=== PATIENT | male | born 1960 | race Caucasian/White ===

== ENCOUNTER 2017-11-14 15:06 | Emergency (ER) | payer SELFPAY ==
[2017-11-14 15:54] LABS: HEMOGLOBIN 17.2 g/dL (13.5-17.0); MEAN CORPUSCULAR HEMOGLOBIN 29.7 pg (27.0-33.4); MEAN CORPUSCULAR HGB CONC 34.5 g/dL (32.0-36.0); MEAN CORPUSCULAR VOLUME 86 fl (80-97); PLATELET COUNT 201 10^3/uL (150-450); RED CELL DISTRIBUTION WIDTH 13.6 % (11.5-14.0)
[2017-11-14 16:01] LABS: INTERNATIONAL RATION (INR) 0.98; PROTHROMBIN TIME 13.7 SEC (11.4-15.4)
[2017-11-14] MEDS ORDERED: ONDANSETRON HCL INJ/PF 4 MG/2 ML SDV IV ONE (16:07)
[2017-11-14 16:10] LABS: A TYPE INFLUENZA AG NEGATIVE (NEGATIVE)
[2017-11-14 16:11] LABS: B INFLUENZA AG NEGATIVE (NEGATIVE)
--- NOTE | 2017-11-14 16:13 | ER Document Report ---
ED General - General Chief Complaint: Nausea/Vomiting/Diarrhea Stated Complaint: NAUSEA,VOMITING Time Seen by Provider: 11/14/17 15:51 Mode of Arrival: Ambulatory Information source: Patient TRAVEL OUTSIDE OF THE [place] IN LAST 30 DAYS: No - HPI Patient complains to provider of: Nausea vomiting and diarrhea Onset: Other - 0200 am Onset/Duration: Sudden Quality of pain: Achy - Body aches all over Associated symptoms: Body/muscle aches, Diarrhea, Nausea, Vomiting. denies: Chest pain, Nonproductive cough, Productive cough, Fever, Headache, Hurts to breath, Leg swelling, Shortness of breath Exacerbated by: Movement Relieved by: Denies Similar symptoms previously: No Recently seen / treated by doctor: No Notes: Patient also states his friend had the same thing yesterday. - Related Data Allergies/Adverse Reactions: No Known Allergies Allergy (Verified 11/14/17 15:31) Past Medical History - General Information source: Patient - Social History Smoking Status: Former Smoker Frequency of alcohol use: None Drug Abuse: None Lives with: Alone Family History: None Patient has suicidal ideation: No Patient has homicidal ideation: No - Past Medical History Cardiac Medical History: Denies: Hx Coronary Artery Disease - high chol , Hx DVT, Hx Heart Attack, Hx Hypertension Pulmonary Medical History: Denies: Hx Asthma, Hx Bronchitis, Hx COPD, Hx Pneumonia Neurological Medical History: Denies: Hx Cerebrovascular Accident, Hx Seizures Renal/ Medical History: Reports: None. Denies: Hx Peritoneal Dialysis Malignancy Medical History: Reports None GI Medical History: Reports: None Musculoskeltal Medical History: Reports Hx Arthritis Past Surgical History: Reports: Hx Orthopedic Surgery - left leg internal fixation - Immunizations Hx Diphtheria, Pertussis, Tetanus Vaccination: Yes Review of Systems - Review of Systems Constitutional: See HPI EENT: See HPI Cardiovascular: No symptoms reported Respiratory: No symptoms reported Gastrointestinal: See HPI Genitourinary: No symptoms reported Male Genitourinary: No symptoms reported Musculoskeletal: See HPI Skin: No symptoms reported Hematologic/Lymphatic: No symptoms reported Neurological/Psychological: No symptoms reported Physical Exam - Vital signs Vitals: Temp Resp Pulse Ox 98.7 F 18 96 11/14/17 15:19 11/14/17 15:19 11/14/17 15:19 - Notes Notes: PHYSICAL EXAMINATION: GENERAL: Well-appearing, well-nourished and in mild acute distress. HEAD: Atraumatic, normocephalic. EYES: Pupils equal round and reactive to light, extraocular movements intact, sclera anicteric, conjunctiva are normal. ENT: Nares patent, oropharynx clear without exudates. Dry mucous membranes. TMs wnl. NECK: Normal range of motion, supple without lymphadenopathy. LUNGS: Breath sounds clear to auscultation bilaterally and equal. No wheezes rales or rhonchi. HEART: Regular rate and rhythm without murmurs ABDOMEN: Soft, nontender, nondistended abdomen. No guarding, no rebound. No masses appreciated. Musculoskeletal: Normal range of motion, no pitting or edema. No cyanosis. NEUROLOGICAL: Cranial nerves grossly intact. Normal speech, normal gait. Normal sensory, motor exams PSYCH: Normal mood, normal affect. SKIN: Warm, Dry, normal turgor, no rashes or lesions noted. Course - Re-evaluation Re-evalutation: Labs- All tests 24 hr 11/14/17 11/14/17 11/14/17 15:22 15:23 15:23 WBC 18.0 H RBC 5.80 H Hgb 17.2 H Hct 50.0 MCV 86 MCH 29.7 MCHC 34.5 RDW 13.6 Plt Count 201 Total Counted 100 Seg Neutrophils % Not Reportable Seg Neuts % (Manual) 93 H Lymphocytes % Not Reportable Lymphocytes % (Manual) 2 L Monocytes % Not Reportable Monocytes % (Manual) 5 Eosinophils % Not Reportable Eosinophils % (Manual) 0 Basophils % Not Reportable Basophils % (Manual) 0 Absolute Neutrophils Not Reportable Abs Neuts (Manual) 16.7 H Absolute Lymphocytes Not Reportable Abs Lymphs (Manual) 0.4 L Absolute Monocytes Not Reportable Abs Monocytes (Manual) 0.9 Absolute Eosinophils Not Reportable Absolute Eos (Manual) 0.0 Absolute Basophils Not Reportable Abs Basophils (Manual) 0.0 Toxic Granulation SLIGHT Platelet Comment ADEQUATE PT 13.7 INR 0.98 VBG pH VBG pCO2 VBG HCO3 VBG Base Excess Sodium Potassium Chloride Carbon Dioxide Anion Gap BUN Creatinine Est GFR ( Amer) Est GFR (Non-Af Amer) Glucose POC Glucose Lactic Acid Calcium Magnesium Total Bilirubin Direct Bilirubin Neonat Total Bilirubin Neonat Direct Bilirubin Neonat Indirect Bili AST ALT Alkaline Phosphatase Total Protein Albumin Urine Color Urine Appearance Urine pH Ur Specific Price Urine Protein Urine Glucose (UA) Urine Ketones Urine Blood Urine Nitrite Urine Bilirubin Urine Urobilinogen Ur Leukocyte Esterase Urine WBC (Auto) Urine RBC (Auto) Squamous Epi Cells Auto Urine Mucus (Auto) Urine Ascorbic Acid Influenza A (Rapid) NEGATIVE Influenza B (Rapid) NEGATIVE 11/14/17 11/14/17 11/14/17 15:23 16:35 16:40 WBC RBC Hgb Hct MCV MCH MCHC RDW Plt Count Total Counted Seg Neutrophils % Seg Neuts % (Manual) Lymphocytes % Lymphocytes % (Manual) Monocytes % Monocytes % (Manual) Eosinophils % Eosinophils % (Manual) Basophils % Basophils % (Manual) Absolute Neutrophils Abs Neuts (Manual) Absolute Lymphocytes Abs Lymphs (Manual) Absolute Monocytes Abs Monocytes (Manual) Absolute Eosinophils Absolute Eos (Manual) Absolute Basophils Abs Basophils (Manual) Toxic Granulation Platelet Comment PT INR VBG pH VBG pCO2 VBG HCO3 VBG Base Excess Sodium 141.1 Potassium 4.0 Chloride 108 H Carbon Dioxide 18 L Anion Gap 15 BUN 18 Creatinine 0.89 Est GFR ( Amer) > 60 Est GFR (Non-Af Amer) > 60 Glucose 181 H POC Glucose 156 H Lactic Acid 2.7 H Calcium 9.6 Magnesium 1.8 Total Bilirubin 1.8 H Direct Bilirubin 0.2 Neonat Total Bilirubin Not Reportable Neonat Direct Bilirubin Not Reportable Neonat Indirect Bili Not Reportable AST 28 ALT 24 Alkaline Phosphatase 80 Total Protein 7.3 Albumin 4.7 Urine Color Urine Appearance Urine pH Ur Specific Price Urine Protein Urine Glucose (UA) Urine Ketones Urine Blood Urine Nitrite Urine Bilirubin Urine Urobilinogen Ur Leukocyte Esterase Urine WBC (Auto) Urine RBC (Auto) Squamous Epi Cells Auto Urine Mucus (Auto) Urine Ascorbic Acid Influenza A (Rapid) Influenza B (Rapid) 11/14/17 11/14/17 16:40 16:40 WBC RBC Hgb Hct MCV MCH MCHC RDW Plt Count Total Counted Seg Neutrophils % Seg Neuts % (Manual) Lymphocytes % Lymphocytes % (Manual) Monocytes % Monocytes % (Manual) Eosinophils % Eosinophils % (Manual) Basophils % Basophils % (Manual) Absolute Neutrophils Abs Neuts (Manual) Absolute Lymphocytes Abs Lymphs (Manual) Absolute Monocytes Abs Monocytes (Manual) Absolute Eosinophils Absolute Eos (Manual) Absolute Basophils Abs Basophils (Manual) Toxic Granulation Platelet Comment PT INR VBG pH 7.46 H VBG pCO2 31.7 L VBG HCO3 22.1 VBG Base Excess -0.5 Sodium Potassium Chloride Carbon Dioxide Anion Gap BUN Creatinine Est GFR ( Amer) Est GFR (Non-Af Amer) Glucose POC Glucose Lactic Acid Calcium Magnesium Total Bilirubin Direct Bilirubin Neonat Total Bilirubin Neonat Direct Bilirubin Neonat Indirect Bili AST ALT Alkaline Phosphatase Total Protein Albumin Urine Color YELLOW Urine Appearance SLIGHTLY-CLOUDY Urine pH 5.0 Ur Specific Price 1.032 Urine Protein 30 H Urine Glucose (UA) NEGATIVE Urine Ketones NEGATIVE Urine Blood NEGATIVE Urine Nitrite NEGATIVE Urine Bilirubin NEGATIVE Urine Urobilinogen NEGATIVE Ur Leukocyte Esterase NEGATIVE Urine WBC (Auto) 2 Urine RBC (Auto) 2 Squamous Epi Cells Auto <1 Urine Mucus (Auto) MANY Urine Ascorbic Acid NEGATIVE Influenza A (Rapid) Influenza B (Rapid) 11/14/17 18:57 11/14/17 18:57 11/14/17 18:00 Tolerated nitesh crackers and soda without difficulty. His lactic was slightly elevated at 2.7. He is getting another liter of normal normal saline and the lactic will be repeated. 11/14/17 18:58 11/14/17 19:43 resting comfortably in the room playing on the bed. He is using his phone. He is tolerating vinay willian and crackers. He does state that he has had a few bowel movements since he has been here. I did tell the patient if he gets worse instead of better to return to the emergency department. He is to have a bland diet for the next few days. I did tell him I will send him home with Zofran for vomiting. Patient states his girlfriend is also vomiting. I stated perhaps they have the same infection. 11/14/17 19:51 Repeat lactic 2.7 - Vital Signs Vital signs: Temp Pulse Resp BP Pulse Ox 97.8 F 15 112/89 H 96 11/14/17 19:05 11/14/17 15:23 11/14/17 15:23 11/14/17 15:23 - Laboratory Result Diagrams: 11/14/17 15:23 11/14/17 15:23 Laboratory results interpreted by me: 11/14/17 11/14/17 11/14/17 15:23 15:23 16:35 WBC 18.0 H RBC 5.80 H Hgb 17.2 H Seg Neuts % (Manual) 93 H Lymphocytes % (Manual) 2 L Abs Neuts (Manual) 16.7 H Abs Lymphs (Manual) 0.4 L VBG pH VBG pCO2 Chloride 108 H Carbon Dioxide 18 L Glucose 181 H POC Glucose 156 H Lactic Acid Total Bilirubin 1.8 H Urine Protein 11/14/17 11/14/17 11/14/17 16:40 16:40 16:40 WBC RBC Hgb Seg Neuts % (Manual) Lymphocytes % (Manual) Abs Neuts (Manual) Abs Lymphs (Manual) VBG pH 7.46 H VBG pCO2 31.7 L Chloride Carbon Dioxide Glucose POC Glucose Lactic Acid 2.7 H Total Bilirubin Urine Protein 30 H 11/14/17 18:42 WBC RBC Hgb Seg Neuts % (Manual) Lymphocytes % (Manual) Abs Neuts (Manual) Abs Lymphs (Manual) VBG pH VBG pCO2 Chloride Carbon Dioxide Glucose POC Glucose Lactic Acid 2.7 H Total Bilirubin Urine Protein - EKG Interpretation by Ma EKG shows normal: Sinus rhythm Rate: Tachycardia - 125 [employer]/QRS: Left axis deviation Discharge - Discharge Clinical Impression: Vomiting and diarrhea Condition: Stable Disposition: HOME, SELF-CARE Instructions: Vomiting ([facility]), Antinausea Medication ([facility]) Additional Instructions: Follow up with your physician tomorrow for further care or return to the ED IMMEDIATELY if symptoms worsen or new concerns occur. If you cannot afford to follow up with your primary care physician a list of low cost clinics have been provided at the end of your discharge papers as well. Prescriptions: Ondansetron [Zofran Odt 4 mg Tablet] 1 - 2 tab PO Q4H PRN #15 tab.rapdis PRN Reason: For Nausea/Vomiting Referrals: MEGHANN DEVI MD [Primary Care Provider] - Follow up as needed
[2017-11-14 16:15] LABS: ALANINE AMINOTRANSFERASE 24 U/L (21-72); ALBUMIN 4.7 g/dL (3.5-5.0); ALKALINE PHOSPHATASE 80 U/L (38-126); ANION GAP 15 (5-19); ASPARTATE AMINO TRANSFERASE 28 U/L (17-59); BILIRUBIN,DIRECT 0.2 mg/dL (0.0-0.4); BILIRUBIN,TOTAL 1.8 mg/dL (0.2-1.3); BLOOD UREA NITROGEN 18 mg/dL (7-20); CALCIUM 9.6 mg/dL (8.4-10.2); CARBON DIOXIDE 18 mmol/L (22-30); CHLORIDE 108 mmol/L (98-107); GLUCOSE 181 mg/dL (75-110); SODIUM 141.1 mmol/L (137-145); TOTAL PROTEIN 7.3 g/dL (6.3-8.2)
[2017-11-14 16:17] LABS: ABSOLUTE LYMPHOCYTES# (MANUAL) 0.4 10^3/uL (0.5-4.7); ABSOLUTE MONOCYTES # (MANUAL) 0.9 10^3/uL (0.1-1.4); ABSOLUTE NEUTROPHILS# (MANUAL) 16.7 10^3/uL (1.7-8.2); BASOPHILS % (MANUAL) 0 % (0-2); EOSINOPHILS % (MANUAL) 0 % (0-6); LYMPHOCYTES % (MANUAL) 2 % (13-45); MONOCYTES % (MANUAL) 5 % (3-13); PLATELET COMMENT ADEQUATE; SEGMENTED NEUTROPHILS % (MAN) 93 % (42-78); TOTAL CELLS COUNTED 100; TOXIC GRANULATION SLIGHT
[2017-11-14] MEDS: NORMAL SALINE 1000 ML 1,000 ML IV PRN ×2 (16:32→16:34)
[2017-11-14 16:54] LABS: MAGNESIUM 1.8 mg/dL (1.6-2.3)
[2017-11-14 17:10] LABS: VENOUS BLOOD BASE EXCESS -0.5 mmol/L; VENOUS BLOOD HCO3 22.1 mmol/L (20-32); VENOUS BLOOD PCO2 31.7 mmHg (35-63); VENOUS BLOOD PH 7.46 (7.30-7.42)
[2017-11-14 17:23] LABS: APPEARANCE,URINE SLIGHTLY-CLOUDY; BILIRUBIN,URINE NEGATIVE (NEGATIVE); COLOR,URINE YELLOW; GLUCOSE, URINE NEGATIVE (NEGATIVE); KETONES,URINE NEGATIVE (NEGATIVE); LEUKOCYTE ESTERASE,URINE NEGATIVE (NEGATIVE); NITRITE,URINE NEGATIVE (NEGATIVE); PROTEIN,URINE 30 mg/dL (NEGATIVE); URINE SPECIFIC GRAVITY 1.032; UROBILINOGEN,URINE NEGATIVE mg/dL (<2.0)
[2017-11-14] MEDS ORDERED: NORMAL SALINE 1000 ML 1,000 ML IV ONE (17:59)
[2017-11-14] MEDS ORDERED: DIPHENOXYLATE HCL/ATROP SULF 2.5-0.025 MG TABLET PO ONE (19:50)
[2017-11-14 20:16] VITALS: BP 142/72
--- NOTE | 2017-11-14 22:47 | EKG REPORT ---
SEVERITY:- OTHERWISE NORMAL ECG - SINUS TACHYCARDIA BORDERLINE LEFT AXIS DEVIATION : Confirmed by: Dona Jackson 14-Nov-2017 22:46:32
== END 2017-11-14 20:36 | disposition home or self-care (01) ==
LOC: ER 15:06
DX: R11.2 Nausea with vomiting, unspecified (principal); R19.7 Diarrhea, unspecified; M79.1 Myalgia; R00.0 Tachycardia, unspecified; R74.0 Nonspecific elevation of levels of transaminase and lactic acid dehydrogenase [LDH]; Z87.891 Personal history of nicotine dependence
CPT/HCPCS: 93005; 99284; 96361; 96374; 36415; 87040; 87086; 82962; 83735; 85025; 85610; 80053; 81001; 82803; 83605; 87804; 93010; J3490; J2405; J7030

== ENCOUNTER 2018-05-27 02:43 | Emergency (ER) | payer OTHER ==
[2018-05-27] MEDS ORDERED: KETOROLAC TROMETHAMINE INJ/PF 30 MG/1 ML SDV IM ONE (04:22)
--- NOTE | 2018-05-27 04:25 | ER Document Report ---
ED General - General Chief Complaint: Low Back Pain Stated Complaint: BACK PAIN Time Seen by Provider: 05/27/18 04:08 Notes: Patient is 57-year-old male who presents with complaint of back pain. Patient says that he lifted something heavy periods that he is picking up a heavy trash can W into the trazodone. He said he felt a pull in his back and has been in pain of his midthoracic spine ever since. No weakness or numbness into his extremities. No loss of bowel control. No urinary retention. No history of surgeries on his back. No recent fevers or infections. No other complaints at this time. TRAVEL OUTSIDE OF THE [place] IN LAST 30 DAYS: No - Related Data Allergies/Adverse Reactions: No Known Allergies Allergy (Verified 11/14/17 15:31) Past Medical History - Social History Smoking Status: Unknown if Ever Smoked Frequency of alcohol use: None Drug Abuse: None Family History: None - Past Medical History Cardiac Medical History: Denies: Hx Coronary Artery Disease - high chol , Hx DVT, Hx Heart Attack, Hx Hypertension Pulmonary Medical History: Denies: Hx Asthma, Hx Bronchitis, Hx COPD, Hx Pneumonia Neurological Medical History: Denies: Hx Cerebrovascular Accident, Hx Seizures Renal/ Medical History: Denies: Hx Peritoneal Dialysis Musculoskeletal Medical History: Reports Hx Arthritis Past Surgical History: Reports: Hx Orthopedic Surgery - left leg internal fixation - Immunizations Hx Diphtheria, Pertussis, Tetanus Vaccination: Yes Review of Systems - Review of Systems Notes: My Normal Review Basic REVIEW OF SYSTEMS: CONSTITUTIONAL : Denies fever, chills, or sweats. Denies recent illness.. CARDIOVASCULAR: Denies chest pain. RESPIRATORY: Denies cough, cold, or chest congestion. Denies shortness of breath, difficulty breathing, or wheezing. GASTROINTESTINAL: Denies abdominal pain. Denies nausea, vomiting, or diarrhea. GENITOURINARY: Denies difficulty urinating, painful urination, burning, frequency, or blood in urine. MUSCULOSKELETAL: Pain in back. SKIN: Denies rash or skin lesions. NEUROLOGICAL: Denies sensory or motor loss. ALL OTHER SYSTEMS REVIEWED AND NEGATIVE. Physical Exam - Vital signs Vitals: Temp Pulse Resp BP Pulse Ox 98.0 F 84 20 127/87 H 99 05/27/18 02:48 05/27/18 02:48 05/27/18 02:48 05/27/18 02:48 05/27/18 02:48 - Notes Notes: General Appearance: Well nourished, alert, cooperative, no acute distress, mild to moderate obvious discomfort. Vitals: reviewed, See vital signs table. Eyes: PERRL, EOMI, Conjuctiva clear Back: Patient has tenseness in the thoracic paraspinal musculature around level T5 T7. Midline of the spine is not very tender to palpation. Lumbar spine is nontender. No step-offs or deformities. Rash or bruising on back. Extremities: strength 5/5 in all extremities, good pulses in all extremities, no swelling or tenderness in the extremities, no edema. Skin: warm, dry, appropriate color, no rash. Patient is good strength with plantar dorsiflexion against resistance. Good distal sensation in both feet. Neuro: speech clear, oriented x 3, normal affect, responds appropriately to questions. Course - Re-evaluation Re-evalutation: 05/27/18 07:03 Patient will be discharged home. I did give him a dose of Toradol. I talked him at length about staying active but not lift anything heavy for the next few days. Encourage him take ibuprofen 400 mg every 6 hours for pain and inflammation. I will prescribe Skelaxin. Encourage him return to ER if he has worsening pain, weakness or numbness into his legs, or if he feels unwell. Dictation of this chart was performed using voice recognition software; therefore, there may be some unintended grammatical errors. - Vital Signs Vital signs: Temp Pulse Resp BP Pulse Ox 98.3 F 82 20 125/76 100 05/27/18 04:58 05/27/18 04:58 05/27/18 04:58 05/27/18 04:58 05/27/18 04:58 Discharge - Discharge Clinical Impression: Back pain Qualifiers: Back pain location: thoracic back pain Chronicity: acute Back pain laterality: bilateral Qualified Code(s): M54.6 - Pain in thoracic spine Condition: Good Disposition: HOME, SELF-CARE Additional Instructions: Please take Ibuprofen 400mg every 6h ours with food. Please take the muscle relaxer ( Skelaxin) as prescribed please follow up with a primary care physician in 1 week fi you are still having pain. Please return to the ER immediately if you are having weakness or numbness into your legs, difficulty urinating, or loss of control of bowel movements. Please do not do any heavy lifting for at least 1 week. Warm compresses alternating with cold compresses are helpful. Prescriptions: Metaxalone [Skelaxin 800 mg Tablet] 800 mg PO ASDIR PRN #20 tablet PRN Reason: Forms: Special Work Note, Return to Work Referrals: MEGHANN DEVI MD [PEDIATRICS] - Follow up in 1 week
[2018-05-27 05:01] VITALS: BP 125/76
== END 2018-05-27 05:00 | disposition home or self-care (01) ==
LOC: ER 02:43
DX: M54.6 Pain in thoracic spine (principal)
CPT/HCPCS: 99283; 96372; J1885

== ENCOUNTER 2018-06-02 10:31 | Emergency (ER) | payer OTHER ==
--- NOTE | 2018-06-02 11:07 | ER Document Report ---
ED General - General Chief Complaint: Back Pain Stated Complaint: BACK PAIN Time Seen by Provider: 06/02/18 10:55 Mode of Arrival: Ambulatory Information source: Patient Notes: 57-year-old male with reflux, hyperlipidemia presents with complaint of upper back pain that started 1 week prior to arrival. Patient was seen in the emergency department after lifting a heavy object which caused him to have immediate pain. Pain is located in the paraspinal musculature of the thoracic spine. Described as a stabbing intermittent pain that is worse in the morning but gradually gets better as he becomes more active. Patient was seen in the emergency department on the and given ibuprofen and Skelaxin which she states has not been helping. 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 He denies any upper or lower extremity weakness, urinary retention, fecal incontinence, fever , chills, history of IV drug use. TRAVEL OUTSIDE OF THE [place] IN LAST 30 DAYS: No - HPI Onset: Last week Onset/Duration: Gradual, Persistent Quality of pain: Stabbing Severity: Mild Associated symptoms: None Exacerbated by: Movement Relieved by: Denies Similar symptoms previously: Yes Recently seen / treated by doctor: Yes - 05/27/18 - Related Data Allergies/Adverse Reactions: No Known Allergies Allergy (Verified 06/02/18 10:32) Past Medical History - General Information source: Patient, [facility] Records - Social History Smoking Status: Current Every Day Smoker Cigarette use (# per day): Yes - 10 Smoking Education Provided: Yes - 4 minutes of smoking cessation provided Frequency of alcohol use: None Drug Abuse: None Lives with: Family Family History: None Patient has suicidal ideation: No Patient has homicidal ideation: No - Past Medical History Cardiac Medical History: Denies: Hx Coronary Artery Disease - high chol , Hx DVT, Hx Heart Attack, Hx Hypertension Pulmonary Medical History: Denies: Hx Asthma, Hx Bronchitis, Hx COPD, Hx Pneumonia Neurological Medical History: Denies: Hx Cerebrovascular Accident, Hx Seizures Renal/ Medical History: Denies: Hx Peritoneal Dialysis Musculoskeletal Medical History: Reports Hx Arthritis Past Surgical History: Reports: Hx Orthopedic Surgery - left leg internal fixation - Immunizations Hx Diphtheria, Pertussis, Tetanus Vaccination: Yes Review of Systems - Review of Systems Notes: REVIEW OF SYSTEMS: CONSTITUTIONAL : Denies fever, chills, or sweats. Denies recent illness. Denies weight loss, recent hospitalizations. EENT: Denies visual changes, eye pain. Denies nasal or sinus congestion or discharge. Denies sore throat, oral lesions, difficulty swallowing. CARDIOVASCULAR: Denies chest pain. Denies palpitations. Denies lower extremity edema. RESPIRATORY: Denies cough, cold, or chest congestion. Denies shortness of breath, wheezing. GASTROINTESTINAL: Denies abdominal pain or distention. Denies nausea, vomiting , or diarrhea. Denies blood in vomitus, stools, or per rectum. Denies black, tarry stools. Denies constipation. GENITOURINARY: Denies difficulty urinating, painful urination, frequency, blood in urine, or vaginal discharge. MUSCULOSKELETAL: Denies neck pain or stiffness. Denies joint pain or swelling. SKIN: Denies rash, lesions or sores. HEMATOLOGIC : Denies easy bruising or bleeding. LYMPHATIC: Denies swollen glands. NEUROLOGICAL: Denies confusion or altered mental status. Denies passing out or loss of consciousness. Denies dizziness or lightheadedness. Denies headache. Denies weakness or paralysis. Denies problems difficulty with ambulation, slurred speech. Denies sensory loss, numbness, or tingling. Denies seizures. PSYCHIATRIC: Denies anxiety or stress. Denies depression, suicidal ideation, or homicidal ideation. Denies visual or auditory hallucinations. Physical Exam - Vital signs Vitals: Temp Pulse Resp BP Pulse Ox 97.6 F 100 16 129/79 H 100 06/02/18 10:45 06/02/18 10:45 06/02/18 10:45 06/02/18 10:45 06/02/18 10:45 Interpretation: No: Febrile - Notes Notes: PHYSICAL EXAMINATION: GENERAL: Well-appearing, well-nourished and in no acute distress. HEAD: Atraumatic, normocephalic. EYES: Pupils equal round and reactive to light, extraocular movements intact, sclera anicteric, conjunctiva are normal. ENT: Nares patent, oropharynx clear without exudates. Moist mucous membranes. NECK: Normal range of motion, supple without lymphadenopathy LUNGS: Breath sounds clear to auscultation bilaterally and equal. No wheezes rales or rhonchi. HEART: Regular rate and rhythm without murmurs ABDOMEN: Soft, nontender, nondistended abdomen. No guarding, no rebound. No masses appreciated. Musculoskeletal: Normal range of motion, no pitting or edema. No cyanosis. Bilateral paraspinal tenderness of the thoracic spine around the level of T9, T10. No midline tenderness. NEUROLOGICAL: Cranial nerves grossly intact. Normal speech, normal gait. Normal sensory, motor exams PSYCH: Normal mood, normal affect. SKIN: Clean dry and intact no rash no lesions Course - Re-evaluation Re-evalutation: 06/02/18 11:05 57-year-old male presents for the second time with complaint of thoracic back pain that happened 1 week ago after lifting a heavy object. He was seen in the emergency department and discharged home on ibuprofen and Skelaxin which he states has not helped him. He states the pain is worse when he first wakes up but improves as he moves. 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 Patient was seen by myself upon arrival. Vital signs were reviewed. Patient is afebrile, normotensive and not hypoxic. Patient does not appear toxic or dehydrated. They are in no acute distress. Previous medical records and nursing notes reviewed. Exam is significant for some mild tenderness in the paraspinal musculature of the thoracic spine. No neuro deficits. Patient will be provided a short course of [place] and a work note will also be provided. Patient provided the opportunity to ask questions, and express concerns. Discharge instructions discussed. Patient is agreeable with discharge home. Return indications explained and discussed with the patient who displays understanding. Patient encouraged to return to the emergency department immediately with any concerns. - Vital Signs Vital signs: Temp Pulse Resp BP Pulse Ox 98.3 F 96 18 128/81 H 98 06/02/18 11:33 06/02/18 11:33 06/02/18 11:33 06/02/18 11:33 06/02/18 11:33 - Diagnostic Test Radiology reviewed: Image reviewed, Reports reviewed Discharge - Discharge Clinical Impression: Strain of thoracic region Qualifiers: Encounter type: initial encounter Qualified Code(s): S29.019A - Strain of muscle and tendon of unspecified wall of thorax, initial encounter Back pain Qualifiers: Back pain location: thoracic back pain Chronicity: chronic Back pain laterality : bilateral Qualified Code(s): M54.6 - Pain in thoracic spine Injury caused by lifting Qualifiers: Encounter type: subsequent encounter Qualified Code(s): X50.0XXD - Overexertion from strenuous movement or load, subsequent encounter Disposition: HOME, SELF-CARE Instructions: Muscle Strain ([facility]), Oral Narcotic Medication ([facility]) Additional Instructions: When returning to work try to avoid lifting anything heavier than 20 pounds. Continue to stay active. Continue to take Motrin 400 mg every [address] work or drive while taking [place]. Prescriptions: Cyclobenzaprine HCl [Flexeril 10 mg Tablet] 10 mg PO TIDP PRN #15 tab PRN Reason: Hydrocodone/Acetaminophen [[place] 5-325 mg Tablet] 1 tab PO Q6H #12 tablet Forms: Elevated Blood Pressure, Smoking Cessation Education, Return to Work
[2018-06-02 11:35] VITALS: BP 128/81
== END 2018-06-02 11:35 | disposition home or self-care (01) ==
LOC: ER 10:31
DX: S29.019A Strain of muscle and tendon of unspecified wall of thorax, initial encounter (principal); M54.6 Pain in thoracic spine; X50.0XXA Overexertion from strenuous movement or load, initial encounter; F17.200 Nicotine dependence, unspecified, uncomplicated
CPT/HCPCS: 99283; 99406

== ENCOUNTER 2018-06-11 03:13 | Emergency (ER) | payer OTHER ==
[2018-06-11] MEDS ORDERED: SILVER SULFADIAZINE 1% CREAM 400 GM TP PRN (04:44)
[2018-06-11] MEDS ORDERED: HYDROCODONE/ACETAMINOPHEN 5-325 MG (6 TAB/ER DISP) PO PRN (04:56)
--- NOTE | 2018-06-11 04:59 | ER Document Report ---
ED General - General Chief Complaint: Back Pain Stated Complaint: BACK PAIN Time Seen by Provider: 06/11/18 04:24 Notes: Patient is a very pleasant 57-year-old male who presents with complaint of back pain. Pain is in the lower back. I saw him just over a week ago after he pulled his back lifting something heavy. At that time I wrote him a note for light duty. The patient went back to work they still made him do the same thing and he says every time he lifts something heavy he feels a pull in his back and re-exacerbates his pain. He says that the Flexeril that was prescribed to him last time did help. He says he is almost out of this. He will also complains that he was using a heating pad and when he laid down the heating pad he fell asleep and now has a burn over across his lower back. No weakness or numbness into his legs. No loss of bowel control. No urinary retention. No fevers. No other complaints at this time. Patient says he does not have insurance and therefore is not her primary care physician and cannot follow-up for physical therapy. TRAVEL OUTSIDE OF THE [place] IN LAST 30 DAYS: No - Related Data Allergies/Adverse Reactions: No Known Allergies Allergy (Verified 06/02/18 10:32) Past Medical History - Social History Smoking Status: Never Smoker Frequency of alcohol use: None Drug Abuse: None Family History: None Patient has suicidal ideation: No Patient has homicidal ideation: No - Past Medical History Cardiac Medical History: Denies: Hx Coronary Artery Disease - high chol , Hx DVT, Hx Heart Attack, Hx Hypertension Pulmonary Medical History: Denies: Hx Asthma, Hx Bronchitis, Hx COPD, Hx Pneumonia Neurological Medical History: Denies: Hx Cerebrovascular Accident, Hx Seizures Renal/ Medical History: Denies: Hx Peritoneal Dialysis Musculoskeletal Medical History: Reports Hx Arthritis Past Surgical History: Reports: Hx Orthopedic Surgery - left leg internal fixation - Immunizations Hx Diphtheria, Pertussis, Tetanus Vaccination: Yes Review of Systems - Review of Systems Notes: My Normal Review Basic REVIEW OF SYSTEMS: CONSTITUTIONAL : Denies fever, chills, or sweats. Denies recent illness. RESPIRATORY: Denies cough, cold, or chest congestion. Denies shortness of breath, difficulty breathing, or wheezing. GASTROINTESTINAL: Denies abdominal pain. Denies nausea, vomiting, or diarrhea. Denies constipation. Last BM: GENITOURINARY: Denies difficulty urinating, painful urination, burning, frequency, or blood in urine. MUSCULOSKELETAL: Back pain. SKIN: Denies rash or skin lesions. NEUROLOGICAL: Denies altered mental status or loss of consciousness. Denies headache. Denies weakness or paralysis or loss of use of either side. Denies problems with gait or speech. Denies sensory or motor loss. ALL OTHER SYSTEMS REVIEWED AND NEGATIVE. Physical Exam - Vital signs Vitals: Temp Pulse Resp BP Pulse Ox 97.7 F 88 18 139/86 H 100 06/11/18 03:42 06/11/18 03:42 06/11/18 03:42 06/11/18 03:42 06/11/18 03:42 - Notes Notes: General Appearance: Well nourished, alert, cooperative, no acute distress, moderate obvious discomfort. Vitals: reviewed, See vital signs table. Back: Patient does have a area of first-degree burn over his lower back. Is no blistering. Does have some tenderness palpation over lumbar paraspinal musculature. No step-offs or deformities to the spine itself. He has good strength in bilateral lower extremities. Is able stand up without difficulty. Extremities: strength 5/5 in all extremities, good pulses in all extremities, no edema. Skin: warm, dry, appropriate color, no rash Neuro: speech clear, oriented x 3, normal affect, responds appropriately to questions. Course - Re-evaluation Re-evalutation: 06/11/18 05:16 Patient looks well on exam. He appears to have a lumbar strain that keeps getting exacerbated because it worked up making still do heavy lifting. He says his back will get better and then when he goes lifted something heavy or turns certain way he will pull it again and it starts hurting again. He says muscle relaxers did help and therefore will prescribe those. He does have pretty extensive first-degree burn over his lower back. I have prescribed Carafate. I encouraged him follow-up closely with primary care doctor however he says this will be difficult for him to do that she does not have insurance and does not make that much money. He is does have some sick days he requests that maybe just take more time off work being that whenever he does go back to work they do not seem to honor his note for light duty. I think this is appropriate. I will give him a week off work to allow him to actually have a chance to heal and get better. Encourage him return to ER if he has worsening pain, leg weakness or numbness, loss of bowel control, urinary retention, she feels it is worse in any way. Patient agrees with plan will be discharged home. Dictation of this chart was performed using voice recognition software; therefore, there may be some unintended grammatical errors. - Vital Signs Vital signs: Temp Pulse Resp BP Pulse Ox 97.7 F 88 18 139/86 H 100 06/11/18 03:42 06/11/18 03:42 06/11/18 03:42 06/11/18 03:42 06/11/18 03:42 Discharge - Discharge Clinical Impression: Back pain Qualifiers: Back pain location: low back pain Chronicity: acute Back pain laterality: bilateral Sciatica presence: without sciatica Qualified Code(s): M54.5 - Low back pain Condition: Good Disposition: HOME, SELF-CARE Instructions: Oral Narcotic Medication ([facility]) Additional Instructions: Please rest over the next week and do not do any heavy lifting.please return to [facility] if you have worsening pain, fevers, leg weakness, loss of control of your bowel function, or inability to urinate. Please be aware that [facility] does have Tylenol (acetaminophen) in it. Please make sure you do not take more than 4000 mg of acetaminophen a day. Do not drive or care for children after you have taken this medication they will make you sleepy and sometimes impair judgment. Apply the Silvadene cream to the burn area on your back once a day. Prescriptions: Cyclobenzaprine HCl [Flexeril 10 mg Tablet] 10 mg PO TIDP PRN #15 tab PRN Reason: Forms: Return to Work
[2018-06-11 05:29] VITALS: BP 129/81
== END 2018-06-11 05:29 | disposition home or self-care (01) ==
LOC: ER 03:13
DX: M54.5 Low back pain (principal); M54.9 Dorsalgia, unspecified; X50.0XXA Overexertion from strenuous movement or load, initial encounter
CPT/HCPCS: 99283; J3490

== ENCOUNTER 2018-11-12 05:22 | Emergency (ER) | payer OTHER ==
--- NOTE | 2018-11-12 05:58 | ER Document Report ---
Addendum entered and electronically signed by PREMA JC FNP 11/15/18 00:04: Course - Vital Signs Vital signs: Temp Pulse Resp BP Pulse Ox 97.5 F 82 18 148/72 H 96 11/12/18 10:03 11/12/18 10:03 11/12/18 05:30 11/12/18 10:03 11/12/18 10:03 - Laboratory Result Diagrams: 11/12/18 06:03 Laboratory results interpreted by me: 11/12/18 07:30 Urine Blood SMALL H Original Note: ED General - General TRAVEL OUTSIDE OF THE [place] IN LAST 30 DAYS: No <PREMA JC - Last Filed: 11/12/18 07:19> <VIJAY GARCIA - Last Filed: 11/12/18 09:30> - General Chief Complaint: Rectal Pain Stated Complaint: RECTAL PAIN Time Seen by Provider: 11/12/18 05:35 Notes: Patient is a 58-year-old male who presents to the emergency department with a chief complaint of prostate pain. He states that he has had pain in the area before and has been checked for prostate cancer by his primary care provider about 4 years ago, but was not diagnosed with prostate cancer. States that he has had his symptoms for the past week and has progressively gotten worse. He said he has been taking [id number] Tylenol and ibuprofen for symptoms, but has had little relief. He denies any dysuria, incontinence, penile discharge, or fever. He states that he is concerned for prostate cancer, but has not been able to see a primary care doctor because his co-pay is too expensive. He is sexually active with his girlfriend and does not use protection. (PREMA JC) - Related Data Allergies/Adverse Reactions: No Known Allergies Allergy (Verified 06/02/18 10:32) Past Medical History - Social History Smoking Status: Unknown if Ever Smoked Frequency of alcohol use: None Drug Abuse: None Family History: None Patient has suicidal ideation: No Patient has homicidal ideation: No - Past Medical History Cardiac Medical History: Denies: Hx Coronary Artery Disease - high chol , Hx DVT, Hx Heart Attack, Hx Hypertension Pulmonary Medical History: Denies: Hx Asthma, Hx Bronchitis, Hx COPD, Hx Pneumonia Neurological Medical History: Denies: Hx Cerebrovascular Accident, Hx Seizures Renal/ Medical History: Denies: Hx Peritoneal Dialysis Musculoskeletal Medical History: Reports Hx Arthritis Past Surgical History: Reports: Hx Orthopedic Surgery - left leg internal fixation - Immunizations Hx Diphtheria, Pertussis, Tetanus Vaccination: Yes <PREMA JC - Last Filed: 11/12/18 07:19> Review of Systems <PREMA JC - Last Filed: 11/12/18 07:19> - Review of Systems Notes: REVIEW OF SYSTEMS: CONSTITUTIONAL : Denies recent illness. Denies recent unintentional weight loss. Denies fever, chills, or sweats. EENT: Denies eye, ear, throat, or mouth pain, discharge, or symptoms. Denies nasal or sinus congestion. CARDIOVASCULAR: Denies chest pain. RESPIRATORY: Denies shortness of breath, cough, congestion, difficulty breathing, or wheezing. GASTROINTESTINAL: Denies nausea, vomiting, and diarrhea. Denies abdominal pain. Denies constipation. GENITOURINARY/REPRODUCTIVE: See HPI. MUSCULOSKELETAL: Denies neck and back pain. Denies joint pain or swelling. SKIN: Denies rash, itchiness, or lesions HEMATOLOGIC : Denies easy bruising or bleeding. LYMPHATIC: Denies swollen, painful, enlarged glands. NEUROLOGICAL: Denies no numbness or tingling denies weakness. Denies headache. Denies altered mental status. Denies alteration in speech. PSYCHIATRIC: Denies stress, anxiety, alteration in sleep patterns, or depression. All other systems reviewed and negative. (PREMA JC) Physical Exam <PREMA JC - Last Filed: 11/12/18 07:19> - Vital signs Vitals: Temp Pulse Resp BP Pulse Ox 97.6 F 95 18 139/90 H 94 11/12/18 05:30 11/12/18 05:30 11/12/18 05:30 11/12/18 05:30 11/12/18 05:30 - Notes Notes: PHYSICAL EXAMINATION: GENERAL: Appears well, healthy, well-nourished, no acute distress. HEAD: Normocephalic, atraumatic. EYES: PERRL, conjunctiva normal, all extraocular movements intact, sclera nonicteric ENT: Moist mucous membranes. NECK: Supple, no noticeable swelling, redness, rash. Normal range of motion. LUNGS: Equal breath sounds bilaterally and clear to auscultation. No wheezes rales or rhonchi. CARDIOVASCULAR: S1-S2, regular rate, regular rhythm. Radial pulses 2+, normal. ABDOMEN: Normoactive bowel sounds. Soft, nontender, no guarding, no rebound tenderness, and no masses palpated. EXTREMITIES: Normal strength and range of motion, no pitting or edema. No cyanosis. NEUROLOGICAL: Moves all extremities upon command. Strength 5/5 in all extremities. PSYCH: Normal mood, normal affect. SKIN: Warm, dry. No rash, lesions, ulcerations noted. Normal skin turgor. RECTAL: Normal round smooth prostate noted. No internal or external hemorrhoids noted. (PREMA JC) Course - Laboratory Result Diagrams: 11/12/18 06:03 <PREMA JC - Last Filed: 11/12/18 07:19> - Laboratory Result Diagrams: 11/12/18 06:03 <VIJAY GARCIA - Last Filed: 11/12/18 09:30> - Re-evaluation Re-evalutation: 11/12/18 06:15 CBC will be sent along with a urinalysis and gonorrhea and chlamydia. If the patient does show a bacterial infection, he will be treated with antibiotics. His prostate exam was done with LESTER An at bedside. His prostate was smooth and round. No internal or external hemorrhoids noted. 11/12/18 07:17 Bedside report was given to URIAH Jordan. He will be taking over care of the patient. (PREMA JC) 11/12/18 09:28 UA unremarkable/acceptable. Per previous provider, pt was to be discharged after UA completed. Return precautions reviewed. Pt in agreement. (VIJAY GARCIA) - Vital Signs Vital signs: Temp Pulse Resp BP Pulse Ox 97.6 F 95 18 139/90 H 94 11/12/18 05:30 11/12/18 05:30 11/12/18 05:30 11/12/18 05:30 11/12/18 05:30 - Laboratory Laboratory results interpreted by me: 11/12/18 07:30 Urine Blood SMALL H Discharge <PREMA JC - Last Filed: 11/12/18 07:19> <VIJAY GARCIA - Last Filed: 11/12/18 09:30> - Discharge Clinical Impression: Rectal pain Condition: Stable Disposition: HOME, SELF-CARE Additional Instructions: Maintain fluids Proper hygenic technique Keep the skin clean Tylenol/ibuprofen as needed Take medications as directed F/u with your PCM in 2-3 days for a recheck Consider consult with a Urologist/gastroenterology (may need a colonoscopy) for ongoing/worsening symptoms. Return to the ED with any worsening symptoms and/or development of fever, headache, chest pain, palpitations, syncope, shortness of breath, trouble breathing, abdominal pain, n/v/d, blood in stool/urine, loss of control of bowel/bladder, urinary retention, or other worsening symptoms that are concerning to you. Forms: Elevated Blood Pressure Referrals: JED CUI MD [ACTIVE STAFF] - Follow up as needed JEFFERY WILSON MD [ACTIVE STAFF] - Follow up as needed DEACON ALATORRE II, MD [[facility]] - Follow up as needed
[2018-11-12 06:22] LABS: ABSOLUTE EOSINOPHILS # (AUTO) 0.4 10^3/uL (0.0-0.6); ABSOLUTE LYMPHOCYTES (AUTO) 2.1 10^3/uL (0.5-4.7); ABSOLUTE MONOCYTES (AUTO) 0.7 10^3/uL (0.1-1.4); ABSOLUTE NEUT (AUTO) 4.8 10^3/uL (1.7-8.2); BASOPHILS % (AUTO) 0.5 % (0-2); EOSINOPHILS % (AUTO) 5.2 % (0-6); HEMATOCRIT 46.2 % (37.9-51.0); HEMOGLOBIN 16.1 g/dL (13.5-17.0); LYMPHOCYTES % (AUTO) 26.7 % (13-45); MEAN CORPUSCULAR HEMOGLOBIN 30.7 pg (27.0-33.4); MEAN CORPUSCULAR VOLUME 88 fl (80-97); MONOCYTES % (AUTO) 8.4 % (3-13); PLATELET COUNT 185 10^3/uL (150-450); RED BLOOD COUNT 5.26 10^6/uL (4.35-5.55); SEGMENTED NEUTROPHILS % (AUTO) 59.2 % (42-78); TOTAL CELLS COUNTED % (AUTO) 100 %; WHITE BLOOD COUNT 8.1 10^3/uL (4.0-10.5)
[2018-11-12] MEDS ORDERED: LOPERAMIDE HCL 2 MG CAPSULE PO ONE ×2 (06:46→10:00)
[2018-11-12 08:04] LABS: APPEARANCE,URINE CLEAR; BILIRUBIN,URINE NEGATIVE (NEGATIVE); COLOR,URINE YELLOW; GLUCOSE, URINE NEGATIVE (NEGATIVE); KETONES,URINE NEGATIVE (NEGATIVE); LEUKOCYTE ESTERASE,URINE NEGATIVE (NEGATIVE); NITRITE,URINE NEGATIVE (NEGATIVE); PROTEIN,URINE NEGATIVE (NEGATIVE); URINE SPECIFIC GRAVITY 1.009; UROBILINOGEN,URINE NEGATIVE mg/dL (<2.0)
[2018-11-12 09:38] LABS: CHLAM PCR NOT DETECTED (NOT DETECT); GON PCR NOT DETECTED (NOT DETECT)
[2018-11-12 10:05] VITALS: BP 148/72
== END 2018-11-12 10:05 | disposition home or self-care (01) ==
LOC: ER 05:22
DX: K62.89 Other specified diseases of anus and rectum (principal)
CPT/HCPCS: 36415; 81001; 85025; 87491; 87591; 99283